=== PATIENT | female | born 1960 | race Hispanic/Latino ===

== ENCOUNTER 2021-05-23 19:55 | Emergency (ER) | payer OTHER ==
[~2021-05-23] VITALS: Ht 160 cm; Wt 64.4 kg
[~2021-05-23 19:55] MED LIST: CLINDAMYCIN HC300 MG PO; GLIPIZIDE XL10 MG PO; METFORMIN HCL1000 MG PO; NORCO 5-325 TA1 EACH PO
[2021-05-24] MEDS ORDERED: ZOFRAN4 MG PO (00:28)
[2021-05-24] MEDS ORDERED: NORVASC5 MG PO (00:28)
== END 2021-05-24 01:03 | disposition home or self-care (01) ==
LOC: ED 19:55
DX: K29.00 Acute gastritis without bleeding (principal); I12.9 Hypertensive chronic kidney disease with stage 1 through stage 4 chronic kidney disease, or unspecified chronic kidney disease; N18.9 Chronic kidney disease, unspecified; E11.22 Type 2 diabetes mellitus with diabetic chronic kidney disease; D63.1 Anemia in chronic kidney disease; Z79.899 Other long term (current) drug therapy; Z79.84 Long term (current) use of oral hypoglycemic drugs
CPT/HCPCS: 76770; 80053; 81001; 83735; 84100; 85025; 96374; 99284-25; A9270; J2405; J7030; J7040

== ENCOUNTER 2021-05-26 01:46 | Emergency (ER) | payer OTHER ==
[~2021-05-26] VITALS: Ht 160 cm; Wt 64.5 kg
[~2021-05-26 01:46] MED LIST changes: +NORVASC5 MG PO; +ZOFRAN4 MG PO
--- OUTSIDE RECORDS SUMMARY | 2021-05-26 01:54 | XMS ---
PreManage Notification: DEVANTE WELLS Security Sustainability Communicator Events No recent Security Events currently on file CRITERIA MET - [facility] - 2 Visits in 30 Days CARE PROVIDERS There are no care providers on record at this time. Marla has no Care Guidelines for this patient. [facility] (12 MO.) [facility] NOTE: Visits indicate total known visits. ED/C VISIT TRACKING (12 MO.) 05[facility]26[facility]2021 01[facility] COMPLAINT: - DIZZINESS, WEAKNESS 05/23/2021 19:[address] [facility] TYPE: Emergency COMPLAINT: - N/V, LIGHT HEADED INPATIENT VISIT TRACKING (12 MO.) No inpatient visits to display in this time frame [email or web address]
--- NOTE | 2021-05-27 07:42 | EKG ---
[facility] [address] [place], [place] [address] Signed Sinus tachycardia Otherwise normal ECG Confirmed by COLLEEN BARILLAS MD ([id number]) on 05/27/2021 7:42:16 AM Electronically Signed By: COLLEEN BARILLAS MD 05/27/21 0742 PATIENT NAME: DESTINEE OCHOATERENCEKARINAPaul Electrocardiogram DATE OF : 58 PHYSICIAN: COLLEEN BARILLAS MD REPORT #: [id number] REPORT IS CONFIDENTIAL AND NOT TO BE RELEASED WITHOUT AUTHORIZATION
== END 2021-05-26 02:30 | disposition left against medical advice (07) ==
LOC: ED 01:46
DX: I12.9 Hypertensive chronic kidney disease with stage 1 through stage 4 chronic kidney disease, or unspecified chronic kidney disease (principal); E11.22 Type 2 diabetes mellitus with diabetic chronic kidney disease; D63.1 Anemia in chronic kidney disease; N18.9 Chronic kidney disease, unspecified; Z79.899 Other long term (current) drug therapy; Z79.84 Long term (current) use of oral hypoglycemic drugs
CPT/HCPCS: 71045; 80053; 81001; 83880; 84484; 85025; 93005; 93010; 99285-25